=== PATIENT | male | born 1960 | race Caucasian/White ===

== ENCOUNTER 2017-02-07 10:14 | Day surgery (SDC) | payer OTHER ==
[~2017-02-07] VITALS: Ht 172.7 cm; Wt 81.8 kg
[2017-02-07 10:52] VITALS: Ht 172.7 cm; Wt 81.8 kg
[2017-02-07] MEDS ORDERED: METF500T4 PO (11:00)
[2017-02-07] MEDS ORDERED: TRAM50TA2 PO (11:00)
[2017-02-07] MEDS ORDERED: SIMV40TA3 PO (11:00)
[2017-02-07] MEDS ORDERED: MIDAZOLAM 1 MG/ML 2 ML INJ ONE ×2 (12:01)
[2017-02-07] MEDS ORDERED: FENTAnyl 50 MCG/ML VIAL ONE (12:01)
--- NOTE | 2017-02-07 12:03 | OPPN ---
Date/Time of Note Date/Time of Note DATE: 02/07/17 TIME: 12:02 Operative Report Preoperative Diagnosis Screening Postoperative Diagnosis Internal hemorrhoids No colon neoplasm is identified Operation/Procedure Performed Colonoscopy Surgeon see signature line printer assistant None Anesthesia: moderate sedation Estimated blood loss: none Transfusion Required none Specimen None Grafts/Implants none Complications none YARED MUNIZ MD Feb 07, 2017 12:03
--- NOTE | 2017-02-07 12:03 | OPPN ---
Date/Time of Note Date/Time of Note DATE: 02/07/17 TIME: 12:02 Operative Report Preoperative Diagnosis Screening Postoperative Diagnosis Internal hemorrhoids No colon neoplasm is identified Operation/Procedure Performed Colonoscopy Surgeon see signature line blood and plasma laboratory assistant None Anesthesia: moderate sedation Estimated blood loss: none Transfusion Required none Specimen None Grafts/Implants none Complications none YARED MUNIZ MD Feb 07, 2017 12:03
--- NOTE | 2017-02-07 12:03 | OPPN ---
Date/Time of Note Date/Time of Note DATE: 02/07/17 TIME: 12:02 Operative Report Preoperative Diagnosis Screening Postoperative Diagnosis Internal hemorrhoids No colon neoplasm is identified Operation/Procedure Performed Colonoscopy Surgeon see signature line branch assistant None Anesthesia: moderate sedation Estimated blood loss: none Transfusion Required none Specimen None Grafts/Implants none Complications none YARED MUNIZ MD Feb 07, 2017 12:03
[2017-02-07 12:10] VITALS: RESP 14
[2017-02-07 12:12] VITALS: BP 110/61
--- NOTE | 2017-02-07 12:58 | GILP ---
DATE OF PROCEDURE: NAME OF PROCEDURE: Colonoscopy. SURGEON: Yared Lo MD PREOPERATIVE DIAGNOSIS: Screening colonoscopy. POSTOPERATIVE DIAGNOSES 1. Colonoscopy all the way to the cecum. 2. Internal hemorrhoids. 3. No colon neoplasm was identified. INDICATION FOR THE PROCEDURE: Mr. Valeriy Barrios is a 56-year-old male patient who was scheduled for scr eening colonoscopy. The procedure and possible complications were well explained to the patient. The patient understood and consented to the procedure. DESCRIPTION OF PROCEDURE: Under the influence of fentanyl and Versed, the colonoscope was carefully introduced in the rectum and under direct vision it was advanced all the way to the cecum. FINDINGS: The patient had internal hemorrhoids. No colon neoplasm was identified. The patient tolerated the procedure very well and there were no complications from the procedure. A t the end of the procedure, he was awake with stable vital signs and he was discharged home to the [facility] of his family. IMPRESSION: 1. Colonoscopy all the way to the cecum. 2. Internal hemorrhoids. 3. No colon neoplasm was identified. PLAN: Next screening colonoscopy in 10 years. Dictated By: YARED BALL/LALO Conf#: [id number] DID#: [id number]
--- NOTE | 2017-02-07 12:58 | GILP ---
DATE OF PROCEDURE: NAME OF PROCEDURE: Colonoscopy. SURGEON: Yared Lo MD PREOPERATIVE DIAGNOSIS: Screening colonoscopy. POSTOPERATIVE DIAGNOSES 1. Colonoscopy all the way to the cecum. 2. Internal hemorrhoids. 3. No colon neoplasm was identified. INDICATION FOR THE PROCEDURE: Mr. Valeriy Barrios is a 56-year-old male patient who was scheduled for scr eening colonoscopy. The procedure and possible complications were well explained to the patient. The patient understood and consented to the procedure. DESCRIPTION OF PROCEDURE: Under the influence of fentanyl and Versed, the colonoscope was carefully introduced in the rectum and under direct vision it was advanced all the way to the cecum. FINDINGS: The patient had internal hemorrhoids. No colon neoplasm was identified. The patient tolerated the procedure very well and there were no complications from the procedure. A t the end of the procedure, he was awake with stable vital signs and [facility] was [facility]. IMPRESSION: 1. Colonoscopy all the way to the cecum. 2. Internal hemorrhoids. 3. No colon neoplasm was identified. PLAN: Next screening colonoscopy in 10 years. Dictated By: YARED BALL/LALO Conf#: [id number] DID#: [id number]
--- NOTE | 2017-02-07 12:58 | GILP ---
DATE OF PROCEDURE: NAME OF PROCEDURE: Colonoscopy. SURGEON: Yared Lo MD PREOPERATIVE DIAGNOSIS: Screening colonoscopy. POSTOPERATIVE DIAGNOSES 1. Colonoscopy all the way to the cecum. 2. Internal hemorrhoids. 3. No colon neoplasm was identified. INDICATION FOR THE PROCEDURE: Mr. Valeriy Barrios is a 56-year-old male patient who was scheduled for scr eening colonoscopy. The procedure and possible complications were well explained to the patient. The patient understood and consented to the procedure. DESCRIPTION OF PROCEDURE: Under the influence of fentanyl and Versed, the colonoscope was carefully introduced in the rectum and under direct vision it was advanced all the way to the cecum. FINDINGS: The patient had internal hemorrhoids. No colon neoplasm was identified. The patient tolerated the procedure very well and there were no complications from the procedure. A t the end of the procedure, he was awake with stable vital signs and he was discharged home to the formerly [facility] of his family. IMPRESSION: 1. Colonoscopy all the way to the cecum. 2. Internal hemorrhoids. 3. No colon neoplasm was identified. PLAN: Next screening colonoscopy in 10 years. Dictated By: YARED BALL/LALO Conf#: [id number] DID#: [id number]
== END 2017-02-07 14:07 | disposition home or self-care (01) ==
LOC: GIL 10:14
PROVIDERS: ATTEND Internal Medicine Gastroenterology
DX: Z12.11 Encounter for screening for malignant neoplasm of colon (principal); K64.8 Other hemorrhoids; E11.9 Type 2 diabetes mellitus without complications
CPT/HCPCS: 45378; 82962; J2250; J3010; Z7610